=== PATIENT | male | born 1970 | race Caucasian/White ===

== ENCOUNTER 2017-04-04 17:59 | Inpatient (IN) ==
--- NOTE | 2017-04-04 18:18 | Emergency Department Note ---
START Narrative - START START: I examined this patient and my medical decision-making was reviewed with the GAME AGENT/PA/Advanced Practice Nurse/Resident Physician. I agree with the documented findings, disposition and treatment plan as described except to the extent set forth below. ED attending note: Patient seen with emergency medicine resident Dr. Bruce. Please see a copy of his note for details of the H&P, evaluation, management and disposition of this patient. We independently had [id number] contact with the patient Briefly: A 46-year-old male history of "mini stroke" one year prior with outpatient cardiac ultrasound and carotid Dopplers which were "okay" per patient. 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 Which is painless. He also has facial droop on the left. But no dysarthria. Patient has some mild heaviness of his left upper extremity. No focal motor deficits appreciated. No chest pain or shortness of breath. We will call a stroke alert at 1815. Stroke alert protocol is being initiated. Disposition pending. Provided 40 minutes of critical care services for this patient.
[2017-04-04 18:21] LABS: Basophils # 0.1 K/mcL (0.0-0.2); Basophils % 0.6 %; Eosinophils # 0.1 K/mcL (0.0-0.6); Eosinophils % 1.3 %; Hematocrit 48.3 % (37.5-50.1); Hemoglobin 16.2 g/dL (12.9-16.9); Immature Granulocytes % 0.4 % (0-4); Lymphocytes # 2.2 K/mcL (0.6-4.6); Lymphocytes % 22.6 %; Mean Corpuscular HGB Conc 33.5 g/dL (31.6-35.5); Mean Corpuscular Hemoglobin 29.3 pg (28.0-33.3); Mean Corpuscular Volume 87.3 fL (83.0-100.0); Mean Platelet Volume 8.8 fL (9.4-12.4); Monocytes % 9.8 %; Neutrophils # 6.5 K/mcL (1.6-8.9); Platelet Count 280 K/mcL (140-400); Red Blood Count 5.53 M/mcL (4.19-5.50); Red Cell Distribution Width 13.2 % (11.5-14.5); Segmented Neutrophils % 65.3 %
[2017-04-04 18:36] LABS: BUN/Creatinine Ratio 11 (6-26); Blood Urea Nitrogen 10 mg/dL (8-26); Calcium 9.7 mg/dL (8.6-10.8); Carbon Dioxide 25 mEq/L (19-29); Chloride 104 mEq/L (98-109); Glucose 90 mg/dL (70-99); Osmolality,Calculated 287 (280-300); Sodium 139 mEq/L (136-145); eGFR For African Americans > 60 (> 60); eGFR For Non-African Americans > 60 (> 60)
--- NOTE | 2017-04-04 18:54 | Emergency Department Note ---
Disposition Clinical Impression: Stroke Qualifiers: CVA mechanism: unspecified Qualified Code(s): I63.9 - Cerebral infarction, unspecified Disposition: Still a Patient Referrals: Lei Morfin MD [Primary Care Provider] - Forms: ED Satisfaction Letter Neuro HPI - General Chief Complaint: ED Neuro Symptoms/Deficit Stated Complaint: Vision loss left eye, stroke HX Time Seen by Provider: 04/04/17 18:09 Source: patient Limitations: no limitations Nursing Notes Reviewed: Yes Vital Signs Reviewed: Yes - History of Present Illness HPI Narrative: Patient presents today for acute vision loss. 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 Patient then began having loss of vision on the left side is associated with left-sided "heaviness". He states he was able to walk but that it felt like it more effort to engage his left side. Patient then presented to the ER approximately 4 hours later after the symptoms had not resolved. He is a previous history of TIA that was diagnosed approximately a year ago but has not been taking daily aspirin for approximately 8 months. Has a history of hypertension that he is not on medications for and has not done the blood work his family doctor requested in regards to hypercholesterolemia. Discussed interventions including the close time window with TPA. The patient is familiar with TPA is actually refusing due to increased risk of worsening symptoms. He states that he has a daughter and that his symptoms are mild and would not want this intervention. - Related Data Home Medications: Previous Rx's Medication Instructions Recorded Hydrocodone/Acetaminophen [[place] 1 tab PO Q4H PRN #14 tab NS 07/24/15 5-325 Tablet] Naproxen [Naprosyn] 500 mg PO BID #20 tablet 07/24/15 Amoxicillin 500 mg PO BID 10 Days 09/19/16 hydroCHLOROthiazide 12.5 mg PO DAILY 30 Days 12/01/16 [Hydrochlorothiazide] Allergies/Adverse Reactions: Allergies Allergy/AdvReac Type Severity Reaction Status Date / Time morphine Allergy Hives Verified 07/23/15 23:54 prednisone Allergy Hives Verified 07/23/15 23:54 Review of Systems: CONSTITUTIONAL: No weight loss, fever, chills, weakness or fatigue. HEENT: Eyes: No visual changes. Ears, Nose, Throat: No hearing loss, difficulty talking or unable to swallow. SKIN: No rash or itching. CARDIOVASCULAR: No chest pain, chest pressure or chest discomfort. No palpitations or edema. RESPIRATORY: No shortness of breath, cough or sputum. GASTROINTESTINAL: No anorexia, nausea, vomiting or diarrhea. No abdominal pain or blood. GENITOURINARY: No burning on urination or hematuria. NEUROLOGICAL: Confusion, vision loss, facial droop, left-sided heaviness MUSCULOSKELETAL: No muscle pain, back pain, joint pain or stiffness. Past Medical History - Past Medical History Medical history: Reports: CVA, hypertension, TIA Surgical history: Reports: other Psychiatric history: Reports: no psych history - Social History Smoking Status: Current every day smoker Smokeless Tobacco Status: No Alcohol use: Reports: occasionally Drug use: Reports: none Physical Exam General appearance: NAD, conversant Eyes: anicteric sclerae, moist conjunctivae; PERRL HENT: Atraumatic; oropharynx clear with moist mucous membranes and no mucosal ulcerations Neck: Normal inspection; Trachea midline; FROM, supple Lungs: CTA, with normal respiratory effort and no intercostal retractions CV: RRR, no MRGs Abdomen: Soft, non-tender; no rebound or gaurding Extremities: No peripheral edema or extremity lymphadenopathy Skin: Normal temperature; no rash, ulcers or lesions Psych: Appropriate mood and affect Neuro: alert and oriented to person, place and time - General Limitations: no limitations General appearance: alert - Expanded Neurological Exam Patient oriented to: Present: person, place, time Speech: Present: fluid speech Cranial nerves: EOM function (II, III, IV, ): Abnormal Left, facial palsy (VII ): Abnormal Right, Abnormal Left, gag reflex (IX): Normal, spinal accessory function (XI): Normal, tongue deviation (XII): Normal Cerebellar function: finger to nose: Normal, heel to colon: Normal Cerebellar function: normal gait Motor strength - LUE: 5/5 Motor strength - RUE: 5/5 Motor strength - LLE: 5/5 Motor strength - RLE: 5/5 Sensory exam upper extremity: light touch: Normal Sensory exam lower extremity: light touch: Normal Coma Scale Eye Opening: Spontaneous Coma Scale Motor Response: Obeys Commands Coma Scale Verbal Response: Oriented Coma Scale Total: 15 - Psychiatric Psychiatric exam: Present: normal affect, normal mood - Skin Skin exam: Present: warm, dry, intact Course - Reevaluation(s) Reevaluation #1: CTA head and neck ordered. CT was called to expedite the process. Patient will be signed out to the night team Dr. Barnard - Consultations Consultation #1: Discussed with [facility] u[facility]. At this time it is greater than 4-1/2 hours and the patient does not qualify for TPA. The recommend a stat CTA of the head and neck in a call back for any abnormal imaging. If the images do not show any abnormality the patient is a candidate to stay at our hospital for further management. Vital Signs Temperature 98.9 F 04/04/17 18:07 Pulse Rate 100 04/04/17 18:07 Respiratory Rate 16 04/04/17 18:07 Blood Pressure 194/118 04/04/17 18:07 O2 Sat by Pulse Oximetry 97 04/04/17 18:07 Temperature 98.9 F 04/04/17 18:07 Pulse Rate 63 04/04/17 19:47 Respiratory Rate 16 04/04/17 19:47 Blood Pressure 157/95 04/04/17 19:47 O2 Sat by Pulse Oximetry 99 04/04/17 19:47 Oxygen Delivery Oxygen Delivery Room Air Neuro Symptoms/Deficit - Medical Records Medical records reviewed: Yes I reviewed the patient's medical records. - Lab Data Lab results reviewed: Yes I reviewed the patient's lab results. Result diagrams: 04/04/17 18:11 04/04/17 18:11 Lab Results 04/04/17 04/04/17 04/04/17 Range/Units 18:11 18:11 18:11 WBC 9.9 (4.3-11.1) K/mcL RBC 5.53 H (4.19-5.50) M/mcL Hgb 16.2 (12.9-16.9) g/dL Hct 48.3 (37.5-50.1) % MCV 87.3 (83.0-100.0) fL MCH 29.3 (28.0-33.3) pg MCHC 33.5 (31.6-35.5) g/dL RDW 13.2 (11.5-14.5) % Plt Count 280 (140-400) K/mcL MPV 8.8 L (9.4-12.4) fL Immature Gran % 0.4 (0-4) % Seg Neutrophils % 65.3 % Lymphocytes % 22.6 % Monocytes % 9.8 % Eosinophils % 1.3 % Basophils % 0.6 % Neutrophils # 6.5 (1.6-8.9) K/mcL Lymphocytes # 2.2 (0.6-4.6) K/mcL Monocytes # 1.0 (0.0-1.3) K/mcL Eosinophils # 0.1 (0.0-0.6) K/mcL Basophils # 0.1 (0.0-0.2) K/mcL Sodium 139 (136-145) mEq/L Potassium 4.0 (3.5-4.5) mEq/L Chloride 104 (98-109) mEq/L Carbon Dioxide 25 (19-29) mEq/L BUN 10 (8-26) mg/dL Creatinine 0.90 (0.72-1.25) mg/dL Est GFR ( Amer) > 60 (> 60) Est GFR (Non-Af Amer) > 60 (> 60) BUN/Creatinine Ratio 11 (6-26) Glucose 90 (70-99) mg/dL POC Glucose (58-89) Calculated Osmolality 287 (280-300) Calcium 9.7 (8.6-10.8) mg/dL Troponin I 0.01 (0-0.03) ng/mL 04/04/17 Range/Units 18:11 WBC (4.3-11.1) K/mcL RBC (4.19-5.50) M/mcL Hgb (12.9-16.9) g/dL Hct (37.5-50.1) % MCV (83.0-100.0) fL MCH (28.0-33.3) pg MCHC (31.6-35.5) g/dL RDW (11.5-14.5) % Plt Count (140-400) K/mcL MPV (9.4-12.4) fL Immature Gran % (0-4) % Seg Neutrophils % % Lymphocytes % % Monocytes % % Eosinophils % % Basophils % % Neutrophils # (1.6-8.9) K/mcL Lymphocytes # (0.6-4.6) K/mcL Monocytes # (0.0-1.3) K/mcL Eosinophils # (0.0-0.6) K/mcL Basophils # (0.0-0.2) K/mcL Sodium (136-145) mEq/L Potassium (3.5-4.5) mEq/L Chloride (98-109) mEq/L Carbon Dioxide (19-29) mEq/L BUN (8-26) mg/dL Creatinine (0.72-1.25) mg/dL Est GFR ( Amer) (> 60) Est GFR (Non-Af Amer) (> 60) BUN/Creatinine Ratio (6-26) Glucose (70-99) mg/dL POC Glucose 98 H (58-89) Calculated Osmolality (280-300) Calcium (8.6-10.8) mg/dL Troponin I (0-0.03) ng/mL - Radiology Data Radiology results reviewed: Yes I reviewed the patient's radiology results. - EKG Data EKG attestation: Yes I reviewed and interpreted this EKG. EKG results narrative: EKG shows sinus rhythm with ventricular rate of 79. WV interval 167. QRS 89. QTC 36. Patient has no significant ST elevations or depressions. Patient's EKG unchanged from 12/01/16. TPA Checklist - LKW: 3-4.5 hrs Add. Contraindications Patient/family understanding: The patient/family members have been counseled and understood the risk, benefit , and alternatives of treatment.
--- NOTE | 2017-04-04 19:59 | Emergency Department Note ---
Disposition Clinical Impression: Facial droop due to stroke Stroke Qualifiers: CVA mechanism: unspecified Qualified Code(s): I63.9 - Cerebral infarction, unspecified Disposition: Admitted As Inpatient Condition: Good Referrals: Lei Morfin MD [Primary Care Provider] - Forms: ED Satisfaction Letter Time of Disposition: 20:03 Neuro HPI - General Chief Complaint: ED Neuro Symptoms/Deficit Stated Complaint: Vision loss left eye, stroke HX Time Seen by Provider: 04/04/17 18:09 Source: patient Limitations: no limitations Nursing Notes Reviewed: Yes Vital Signs Reviewed: Yes - Related Data Home Medications: Previous Rx's Medication Instructions Recorded Hydrocodone/Acetaminophen [[place] 1 tab PO Q4H PRN #14 tab NS 07/24/15 5-325 Tablet] Naproxen [Naprosyn] 500 mg PO BID #20 tablet 07/24/15 Amoxicillin 500 mg PO BID 10 Days 09/19/16 hydroCHLOROthiazide 12.5 mg PO DAILY 30 Days 12/01/16 [Hydrochlorothiazide] Allergies/Adverse Reactions: Allergies Allergy/AdvReac Type Severity Reaction Status Date / Time morphine Allergy Hives Verified 07/23/15 23:54 prednisone Allergy Hives Verified 07/23/15 23:54 Past Medical History - Past Medical History Attestation: Yes The following information was validated with the patient. Source: patient Medical history: Reports: CVA, hypertension, TIA Surgical history: Reports: other Psychiatric history: Reports: no psych history - Social History Smoking Status: Current every day smoker Smokeless Tobacco Status: No Alcohol use: Reports: occasionally Drug use: Reports: none Physical Exam - General Limitations: no limitations General appearance: alert Course Course Narrative: Patient signed out by the daytime physician Dr. Parish and Dr. Bruce. Detailed review the patient's presentation symptoms medical history intervention were discussed. Patient presented here today with left-sided vision loss and left-sided facial droop. Stroke alert was called that time. Detailed review evaluation was completed with the [facility] stroke team. Due to the patient's presentation symptoms were discussed. Patient was determined not to be a TPA candidate. They recommended CT scans of the head secondary to symptoms and presentation. The imaging order was placed by the daytime physician. I reviewed the case presentation and symptoms with the patient. He has had no change in symptoms at this time. Physical exam is stable. Admission process to be completed once CT imaging is resulted. Disposition to be determined. - Reevaluation(s) Reevaluation #1: cta of the neck and head are neg. pt informed. asa given. pt otherwise has no complaints. pt to be admitted to the hospital for further evaluation of stroke like symptoms. Time: 20:28 Reevaluation #2: Patient I reviewed the presentation with the hospitalist Dr. solano. Vital signs reviewed medical intervention and evaluation CT imaging also discussed. No other recommendations from them at this time. Patient admitted the hospital for further evaluation of strokelike symptoms. Patient's been clinically stable with no signs of acute change or deterioration in his presentation. CT images were reviewed as well and the fact the patient is unable to have MRI secondary to nerve stimulator in his spine. This information was all passed on to the hospitals prior to admission. Patient is otherwise stable resting in the bed. Will continue monitoring in emergency room at admission process is completed. Evaluation given at this time as well to help prevent against contrast-induced nephropathy in anticipation of patient requiring further imaging studies with contrast. Time: 20:39 Vital Signs Temperature 98.9 F 04/04/17 18:07 Pulse Rate 100 04/04/17 18:07 Respiratory Rate 16 04/04/17 18:07 Blood Pressure 194/118 04/04/17 18:07 O2 Sat by Pulse Oximetry 97 04/04/17 18:07 Temperature 98.9 F 04/04/17 18:07 Pulse Rate 63 04/04/17 19:47 Respiratory Rate 16 04/04/17 19:47 Blood Pressure 157/95 04/04/17 19:47 O2 Sat by Pulse Oximetry 99 04/04/17 19:47 Oxygen Delivery Oxygen Delivery Room Air Neuro Symptoms/Deficit - MDM Narrative Medical decision making narrative: Left-sided facial droop, vision changes, strokelike symptoms - Medical Records Medical records reviewed: Yes I reviewed the patient's medical records. - Lab Data Lab results reviewed: Yes I reviewed the patient's lab results. Result diagrams: 04/04/17 18:11 04/04/17 18:11 Lab Results 04/04/17 04/04/17 04/04/17 Range/Units 18:11 18:11 18:11 WBC 9.9 (4.3-11.1) K/mcL RBC 5.53 H (4.19-5.50) M/mcL Hgb 16.2 (12.9-16.9) g/dL Hct 48.3 (37.5-50.1) % MCV 87.3 (83.0-100.0) fL MCH 29.3 (28.0-33.3) pg MCHC 33.5 (31.6-35.5) g/dL RDW 13.2 (11.5-14.5) % Plt Count 280 (140-400) K/mcL MPV 8.8 L (9.4-12.4) fL Immature Gran % 0.4 (0-4) % Seg Neutrophils % 65.3 % Lymphocytes % 22.6 % Monocytes % 9.8 % Eosinophils % 1.3 % Basophils % 0.6 % Neutrophils # 6.5 (1.6-8.9) K/mcL Lymphocytes # 2.2 (0.6-4.6) K/mcL Monocytes # 1.0 (0.0-1.3) K/mcL Eosinophils # 0.1 (0.0-0.6) K/mcL Basophils # 0.1 (0.0-0.2) K/mcL Sodium 139 (136-145) mEq/L Potassium 4.0 (3.5-4.5) mEq/L Chloride 104 (98-109) mEq/L Carbon Dioxide 25 (19-29) mEq/L BUN 10 (8-26) mg/dL Creatinine 0.90 (0.72-1.25) mg/dL Est GFR ( Amer) > 60 (> 60) Est GFR (Non-Af Amer) > 60 (> 60) BUN/Creatinine Ratio 11 (6-26) Glucose 90 (70-99) mg/dL POC Glucose (58-89) Calculated Osmolality 287 (280-300) Calcium 9.7 (8.6-10.8) mg/dL Troponin I 0.01 (0-0.03) ng/mL 04/04/17 Range/Units 18:11 WBC (4.3-11.1) K/mcL RBC (4.19-5.50) M/mcL Hgb (12.9-16.9) g/dL Hct (37.5-50.1) % MCV (83.0-100.0) fL MCH (28.0-33.3) pg MCHC (31.6-35.5) g/dL RDW (11.5-14.5) % Plt Count (140-400) K/mcL MPV (9.4-12.4) fL Immature Gran % (0-4) % Seg Neutrophils % % Lymphocytes % % Monocytes % % Eosinophils % % Basophils % % Neutrophils # (1.6-8.9) K/mcL Lymphocytes # (0.6-4.6) K/mcL Monocytes # (0.0-1.3) K/mcL Eosinophils # (0.0-0.6) K/mcL Basophils # (0.0-0.2) K/mcL Sodium (136-145) mEq/L Potassium (3.5-4.5) mEq/L Chloride (98-109) mEq/L Carbon Dioxide (19-29) mEq/L BUN (8-26) mg/dL Creatinine (0.72-1.25) mg/dL Est GFR ( Amer) (> 60) Est GFR (Non-Af Amer) (> 60) BUN/Creatinine Ratio (6-26) Glucose (70-99) mg/dL POC Glucose 98 H (58-89) Calculated Osmolality (280-300) Calcium (8.6-10.8) mg/dL Troponin I (0-0.03) ng/mL - Radiology Data Radiology results reviewed: Yes I reviewed the patient's radiology results. CT imaging of the head reviewed. No acute intracranial pathology or bleed noted at this time Attestation Statement - Attestation Attestation: I, Karl Vera MD, personally evaluated this patient and discussed their management with the resident physician. I reviewed the resident's note and agree with the documented findings, medical decision making, and plan of care. This patient was signed out at shift change from Dr. Bruce and Dr. Parish. Please refer to their notes for complete details of history and physical examination. Patient presented with stroke symptoms. He was a stroke alert and after neurology consultation tPA was not indicated however patient had refused to take TPA anyway. At shift change he is awaiting a CTA of the head and neck prior to hospital admission. CTA returned and was suboptimal but showed no obvious abnormality. On exam patient is a well-developed well-nourished male in no acute distress. He is alert and oriented 3. There is no cyanosis or diaphoresis. Sounds are clear and equal bilaterally. Heart regular rate and rhythm. Abdomen soft and nontender with normal bowel sounds. The hospitalist, Dr. Solano, with consulted and accepted admission of the patient.
[2017-04-04] MEDS ORDERED: 0.9 % Sodium Chloride 1,000 ML IVC ONE (20:24)
[2017-04-04] MEDS ORDERED: Aspirin 81 MG TAB.CHEW PO STA (20:25)
[2017-04-04] MEDS ORDERED: Acetaminophen 325 MG TABLET PO PRN (21:43)
--- NOTE | 2017-04-04 22:21 | Internal Med History&Physical ---
Date of Encounter: 04/04/17 Time of Encounter: 21:00 Assessment and Plan (1) Stroke Current visit: Yes Status: Acute Negative TPA candidate per telestroke report. CTA negative. Patient not able to have an MRI due to back surgery with metallic implantation. However, given objective and subjective left sided weakness and visual impairment, will consult Neurology for further recommendations. Echocardiogram and Carotid Ultrasounds ordered. Aspirin 325 mg ordered x 1, 81 mg ordered daily. Qualifiers: CVA mechanism: unspecified Qualified Code(s): I63.9 - Cerebral infarction, unspecified (2) Hypertension Current visit: Yes Status: Chronic Noncompliant with Lisinopril. Social work consulted for medication assistance. At this time, allow for permissive HTN in light of stroke - like symptoms. Qualifiers: Hypertension type: essential hypertension Qualified Code(s): I10 - Essential (primary) hypertension (3) Tobacco abuse Current visit: Yes Status: Acute Cessation advised, but patient refused. Agrees to cut down at this time. Internal Medicine - H&P: HPI Chief complaint: left sided weakness, visual loss Admitted From: Home Plans for Post Hospital Care: Home History of present illness: Mr. Lopez is a 46 year old male with PMH noncompliance, HTN, TIA, back trauma resulting in R-sided weakness, tobacco abuse who presents with acute left sided weakness (upper and lower extremities) and left-sided facial drooping with left- eye visual loss, memory impairment. Symptoms started around 2 p.m. this afternoon while patient was at work. 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 His left eye lost vision and was accompanied by left-sided facial drooping. His left arm and leg felt very weak and heavy. He admits that his visual loss has been an ongoing intermittent issue. However, the other issues that he describes are completely new. Denies any difficulty in swallowing or speech. He denies any preceding chest pain or shortness or breath or palpitations. When he initially presented to the ED A telemetry stroke alert was called and patient was determined to not be a TPA candidate; he underwent a CT angiogram of the head and this was unremarkable. He states that his vision has returned in the left eye, but the remainder of the symptoms persist. Of note, he appeared to have been worked up in 2015 for possible stroke and had a normal echocardiogram and carotid Dopplers. He is very pleasant, but claims he will not stop smoking but is agreeable to cutting back on use. He also has not taken any of his meds ( Aspirin, Lisinopril, etc.) in 5 months. Past Med Surg Social Fam HX - Past Medical History Source: patient Medical history: CVA, hypertension, TIA, other (steel injury resulting in back trauma; patient has persistent RUE and RLE weakness. ) Psychiatric history: no psych history - Past Surgical History Surgical History: other - Social History Smoking Status: Current every day smoker Smokeless Tobacco Status: No Alcohol use: occasionally Drug use: none Internal Medicine - H&P: Meds Hydrocodone/Acetaminophen [[place] 5-325 Tablet] 1 tab PO Q4H PRN #14 tab NS 07/24 [Rx] Naproxen [Naprosyn] 500 mg PO BID #20 tablet 07/24/15 [Rx] Amoxicillin 500 mg PO BID 10 Days 09/19/16 [Rx] hydroCHLOROthiazide [Hydrochlorothiazide] 12.5 mg PO DAILY 30 Days 12/01/16 [Rx] Allergies morphine Allergy (Verified 07/23/15 23:54) Hives prednisone Allergy (Verified 07/23/15 23:54) Hives All Systems PM: A 10-system review of systems was performed and is negative for pertinent findings except as documented above in the HPI. - Constitutional Constitutional: no anorexia, no fever(s) - EENT Eyes: as per HPI Ears: no decreased hearing Additional comments: No difficulty in swallowing. - Cardiovascular Cardiovascular ROS IM: no chest pain, no dyspnea - Respiratory Respiratory: no cough, no dyspnea - Genitourinary Genitourinary ROS male: no dysuria - Musculoskeletal Musculoskeletal ROS IM: as per HPI, muscle weakness, tingling - Neurological Neurological ROS: confusion, numbness, weakness, other visual disturbances, no abnormal speech - Endocrine Additional comments: reports history of symptomatic hypoglycemia - Constitutional Vitals: Temp Pulse Resp BP Pulse Ox 98.3 F 60 16 160/88 98 04/04/17 21:53 04/04/17 21:53 04/04/17 21:53 04/04/17 21:53 04/04/17 21:53 General appearance: Present: A&O X 3, pleasant, no acute distress - Head Head exam: Present: atraumatic - Eye Pupils: Present: PERRL - ENT ENT exam: Present: mucous membranes moist - Respiratory Respiratory exam: Present: CTAB - Cardiovascular Cardiovascular exam: Present: RRR, +S1, +S2. Absent: diastolic murmur, systolic murmur - GI/Abdominal GI/Abdominal exam: Present: soft. Absent: tenderness - Neurological Exam Neurological exam: Present: alert Additional comments: left facial drooping with asymmetric smile. No glossal deviation. Left eye ptosis. Forehead wrinkles bilaterally. Left arm and leg weakness with strenght 4 /5. Notable weakness affected the intrinsic hand muscles. No speech impairment. - Psychiatric Psychiatric exam: Present: normal affect, normal mood - Skin Additional comments: tattoos Internal Med - H&P Results - Labs CBC & Chem 7: 04/04/17 18:11 04/04/17 18:11
[2017-04-05 04:48] LABS: Chol/HDL Ratio 5.8 (0-4.9)
[2017-04-05 04:49] LABS: Hemoglobin A1C 5.2 %
[2017-04-05] MEDS ORDERED: Aspirin 81 MG TAB.CHEW PO SCH (09:00)
--- NOTE | 2017-04-05 11:23 | Internal Med Progress Note ---
<Severino Coats - Last Filed: 04/05/17 11:17> Date of Encounter: 04/05/17 Time of Encounter: 08:15 - Assessment and plan (1) TIA (transient ischemic attack) Current Visit: Yes Status: Acute Assessment and plan: Patient presented with signs and symptoms concerning for CVA/TIA (left-sided weakness and visual impairment). Tele-stroke was consulted, at the time of presentation he is outside the window for TPA. CTA of the head and neck was limited, but negative. Patient found to have TIA in September 2015 with negative workup at that time. Bilateral carotid Dopplers pending Echocardiogram pending We will consult neurology due to concerns of recurrent TIA Continue aspirin daily Blood pressure control with 5 mg was supple daily Hyperlipidemia controlled with atorvastatin 80 mg daily Qualifiers: Transient cerebral ischemia type: amaurosis fugax Qualified Code(s): G45.3 - Amaurosis fugax (2) Hypertension Current Visit: Yes Status: Chronic Assessment and plan: Patient on hydrochlorothiazide as outpatient. Presented to [facility] with elevated blood pressure at 194/118. Blood pressure shows good control now with last blood pressure 108/67 on lisinopril 5 mg. Continue 5 mg lisinopril daily Qualifiers: Hypertension type: essential hypertension Qualified Code(s): I10 - Essential (primary) hypertension (3) Lower back injury Current Visit: Yes Status: Acute Assessment and plan: Patient has history of lower back injury with history of lower back surgery and hardware in place. Due to the nature of the hardware in place cannot obtain MRI of brain. Patient also has residual right lower extremity weakness due to his prior injury. He has difficulty in steady ambulation, Romberg, right lower extremity weakness, and atrophy of the right lower extremity. Qualifiers: Encounter type: initial encounter Qualified Code(s): S39.92XA - Unspecified injury of lower back, initial encounter (4) Tobacco abuse Current Visit: Yes Status: Acute (5) DVT prophylaxis Current Visit: Yes Status: Acute Assessment and plan: EPCDs - Subjective Interval history: Patient reports that he is doing well today with return of his strength and vision. He denies any chest pain, denies history of diabetes, denies shortness of breath, denies feeling ill recently. He reports having residual right lower extremity weakness following his back injury previously that this interferes with both the Romberg and his gait normally. - Constitutional Vitals: Temp Pulse Resp BP Pulse Ox 97.8 F 53 16 108/67 99 04/05/17 07:45 04/05/17 07:45 04/05/17 07:45 04/05/17 07:45 04/05/17 07:58 General appearance: Present: A&O X 3, pleasant, no acute distress Exam: General: Cooperative, pleasant, no acute distress, alert and oriented 3, answers questions appropriately HEENT: Normocephalic, atraumatic, neck supple, trachea midline, Conjunctiva pink , sclera anicteric, PERRLA, EOMI, dentition poor, oral mucosa moist, no orophargeal erythema or exudates Respiratory: No accessory muscle usage, clear to auscultation bilaterally, no wheezes/rhonchi/rales appreciated Cardiovascular: Regular rate and rhythm, S1 and S2 present, no murmurs/rubs/ gallops/clicks appreciated, no carotid bruits auscultated GI/abdominal: Nondistended, nontender, soft, normal bowel sounds, no peritoneal signs Extremities: No calf tenderness, noncyanotic, no pedal edema appreciated, warm, lower extremity pulses palpable and symmetrical, right lower extremity slightly smaller diameter due to atrophy and chronic weakness Neurological: Alert and oriented 3, no facial droop, cranial nerves II through XII grossly intact without deficits, gross sensation to light touch intact in upper and lower extremities bilaterally, patient has 4/5 strength in right lower extremity, 5/5 strength in bilateral upper extremities and left lower extremity, rapid alternating movements smooth, fast, with good miranda, finger to nose test accurate without tremors, wide stance halting gait (due to right lower secondary to weakness), increased swelling observed with Romberg (due to right-lower shoulder weakness) Skin: Dry, intact, normal color Internal Medicine: Result - Labs CBC & Chem 7: 04/04/17 18:11 04/04/17 18:11 Consult Discharge Plan - Plan [facility] - <Adrian Finney - Last Filed: 04/05/17 13:38> Date of Encounter: 04/05/17 - Constitutional Vitals: Temp Pulse Resp BP Pulse Ox 98 F 57 16 143/78 98 04/05/17 11:44 04/05/17 11:44 04/05/17 11:44 04/05/17 11:44 04/05/17 11:44 Internal Medicine: Result - Labs CBC & Chem 7: 04/04/17 18:11 04/04/17 18:11 - Attending Attestation I examined this patient and my medical decision-making was reviewed with the GASOLINE PUMP MECH[employer]IC/PA/Advanced Practice Nurse/Resident Physician. I agree with the documented findings, disposition and treatment plan as described except to the extent set forth below. Agree with Dr. Coats, neurology consult.
[2017-04-05 11:46] VITALS: BP 143/78
--- NOTE | 2017-04-05 14:08 | Neurology - Consult Note ---
Date of Encounter: 04/05/17 Time of Encounter: 14:06 Assessment and Plan (1) Stroke Current Visit: Yes Status: Acute 46-year old man with prior history of stroke, hypertension, hypercholesterolemia , with an acute-onset episode of visual disturbance and left facial droop, highly suspicious for a new stroke in the right hemisphere without significant motor or sensory deficits - suggestive of possible involvement of the right insula. Cannot get MRI brain. CTA with no occlusions. Suspect small vessel issue, likely cholesterol embolism/plaque thrombus. ASA HTN control Lipid control Smoking cessation Follow-up with Neurology (Dr Vance or Dr Barbosa) in 1-2 weeks as outpatient. Qualifiers: Qualified Code(s): I63.411 - Cerebral infarction due to embolism of right middle cerebral artery History of Present Illness Chief complaint: stroke? HPI: Mr. Lopez is a 46 year old male with prior history of stroke, hypertension, hypercholesterolemia, with an acute episode of visual disturbancethat happened while he was at work. He apparently did have a similar episode in the past and it resolved itself. Both times, apparently he had a slight facial droop with that as well. He has a prior history of lumbar surgery, and has some residual deficits on the right leg. No chest pain/palpitations/shortness of breath. He states that his eye symptoms have resolved but his face droop is still there. He has family history of cholesterol issues, and he is a smoker. He has social issues at home, that even when he attempted to cut down his cigarettes (or use chantix), he had bad reactions and could not stop. He never tried patch. Yesterday when he came to the ER, a telestroke consult was made and although he was eligible for tPA, he did not want to do the tPA given the possibility of making things worse. He has now been placed on ASA, lisinopril and statins. He could not get MRI because of pain stimulator in his spinal cord. He had CTH/ CTA(H&N) which was all normal. Past Med Surg Social Fam HX - Past Medical History Medical history: CVA, hypertension, TIA, other Psychiatric history: no psych history - Past Surgical History Surgical History: appendectomy, cholecystectomy, other - Social History Smoking Status: Current every day smoker Packs per day: 1 Smokeless Tobacco Status: No Alcohol use: occasionally Drug use: none Medications and Allergies No Known Home Drugs 04/05/17 [History] Allergies morphine Allergy (Verified 07/23/15 23:54) Hives prednisone Allergy (Verified 07/23/15 23:54) Hives All Systems: A 10-system review of systems was performed and is negative for pertinent findings except as documented above in the HPI. - Constitutional Constitutional ROS IM: as per HPI - Eyes Eyes: left: loss of peripheral vision (left visual field loss), loss of vision ( left visual field loss) - Nose, Mouth, Throat Nose, mouth and throat: as per HPI - Cardiovascular Cardiovascular ROS IM: as per HPI - Respiratory Respiratory IM: as per HPI - Gastrointestinal Gastrointestinal: as per HPI - Genitourinary Genitourinary ROS: as per HPI - Musculoskeletal Musculoskeletal ROS IM: as per HPI - Neurological Neurological ROS: as per HPI, loss of vision - Psychiatric Psychiatric general PM: as per HPI - Endocrine Endocrine IM: as per HPI - Hematologic/Lymphatic Hematologic/Lymphatic pediatric: as per HPI - Allergic/Immunologic Allergic/Immunologic ROS PM: as per HPI Physical Examination - Vital Signs Vital Signs: Initial Vital Signs Temp Pulse Resp BP Pulse Ox 98.9 F 100 16 194/118 97 04/04/17 18:07 04/04/17 18:07 04/04/17 18:07 04/04/17 18:07 04/04/17 18:07 Vital Signs - 24 hr 04/04/17 18:07 04/04/17 18:25 04/04/17 18:39 Temperature 98.9 F Pulse Rate 100 80 74 Respiratory Rate 16 16 18 Blood Pressure 194/118 167/92 150/86 O2 Sat by Pulse Oximetry 97 98 97 04/04/17 19:47 04/04/17 21:04 04/04/17 21:53 Temperature 98.3 F Pulse Rate 63 60 Respiratory Rate 16 16 16 Blood Pressure 157/95 144/99 160/88 O2 Sat by Pulse Oximetry 99 98 04/04/17 23:10 04/05/17 00:50 04/05/17 03:00 Temperature 98.3 F 97.8 F 97.8 F Pulse Rate 60 63 60 Respiratory Rate 16 16 16 Blood Pressure 160/88 124/65 126/70 O2 Sat by Pulse Oximetry 96 96 04/05/17 05:03 04/05/17 06:02 04/05/17 07:45 Temperature 97.7 F 97.8 F Pulse Rate 62 62 53 Respiratory Rate 16 16 16 Blood Pressure 128/72 128/72 108/67 O2 Sat by Pulse Oximetry 97 99 04/05/17 07:58 04/05/17 11:44 Temperature 98 F Pulse Rate 57 Respiratory Rate 16 Blood Pressure 143/78 O2 Sat by Pulse Oximetry 99 98 - Constitutional General appearance: comfortable - Neurologic Sensorimotor examination: other (left facial droop) Detailed motor examination: grossly full strength in all extremities (except in right lower extremity, limited by pain) Motor examination - right side: 4/5: tibialis Anterior (secondary to spine surgery), quadriceps, toe extension (EHL), plantarflexion, 5/5: deltoids, biceps , triceps, wrist flexion, wrist extension, coding file clerk, hip flexors Motor examination - left side: 5/5: deltoids, biceps, triceps, wrist flexion, wrist extension, hip flexors, coding file clerk, quadriceps, tibialis Anterior, toe extension (EHL), plantarflexion Detailed sensory examination: intact Reflex and gait examination: intact Reflexes: Biceps: 2+, Triceps: 2+, Brachioradialis: 2+, Achilles: 2+ Mental Status Examination: awake, alert, oriented to person, oriented to place, oriented to time, follows commands appropriately, answers questions appropriately, no agnosia, no aphasia, no aproxia Cranial nerve examination: PERRL, EOMI, visual goldman intact, corneal reflexes brisk symmetrically, sensory to face intact, mastication intact, no facial asymmetry is present (left facial droop), no dysarthria, hearing is intact symmetrically, soft palate elevates bilaterally upon phonation, gag reflex intact, flexes SCM and trapezius muscles symmetrically with full power, tongue protrudes midline, no atrophy or facial fasiculations present Cranial Nerve Exam: facial droop: Left (left facial droop) Cerebellar examination: no dysmetria, performs finger to nose and heel to colon symmetrically without ataxia, no gait ataxia, no truncal ataxia, no difficulty with rapid alternating movements Results - Laboratory Findings CBC and BMP: 04/04/17 18:11 04/04/17 18:11 Abnormal lab findings: Abnormal lab results RBC 5.53 M/mcL (4.19-5.50) H 04/04/17 18:11 MPV 8.8 fL (9.4-12.4) L 04/04/17 18:11 POC Glucose 98 (58-89) H 04/04/17 18:11 Triglycerides 172 mg/dL (< 150) H 04/05/17 04:06 VLDL Cholesterol, Calc 34 mg/dL (< 31) H 04/05/17 04:06 HDL Cholesterol 27 mg/dL (40-59) L 04/05/17 04:06 Cholesterol/HDL Ratio 5.8 (0-4.9) H 04/05/17 04:06 - Diagnostic Findings Additional findings: Head CT 04/04/17 18:14 IMPRESSION: No acute intracranial abnormality. No change from September 2015 exam. Findings were discussed with ER physician DR. Bruce over the phone at 6:40 p.m. on April 04, 2017. D/ / Hubert Davis MD / Hubert Davis MD Interpreting Provider: Hubert Davis MD Head CTA 04/04/17 18:53 IMPRESSION: Suboptimal exam. CTA of the head particularly limited. No obvious flow limiting stenosis or branch occlusion identified. RECOMMENDATIONS: Repeat exam or obtain MRI/MRA for further evaluation if clinically warranted. D/ / Jamar Pedro MD / Jamar Pedro MD Interpreting Provider: Jamar Pedro MD Neck CTA 04/04/17 18:53 IMPRESSION: Suboptimal exam. CTA of the head particularly limited. No obvious flow limiting stenosis or branch occlusion identified. RECOMMENDATIONS: Repeat exam or obtain MRI/MRA for further evaluation if clinically warranted. D/ / Jamar Pedro MD / Jamar Pedro MD Interpreting Provider: Jamar Pedro MD Consult Discharge Plan - Plan Referrals: antony,Lei Govea MD [Primary Care Provider] -
--- NOTE | 2017-04-05 14:36 | Discharge Summary ---
<Severino Coats - Last Filed: 04/05/17 14:56> Date of Encounter: 04/05/17 Time of Encounter: 13:45 - Discharge Diagnosis (1) Stroke Priority: Primary Status: Acute Qualifiers: CVA mechanism: embolism Precerebral and cerebral artery: middle cerebral artery Laterality of affected vessel: right Qualified Code(s): I63.411 - Cerebral infarction due to embolism of right middle cerebral artery (2) Hypertension Priority: Primary Status: Chronic Qualifiers: Hypertension type: essential hypertension Qualified Code(s): I10 - Essential (primary) hypertension (3) Lower back injury Priority: Secondary Status: Chronic Qualifiers: Encounter type: initial encounter Qualified Code(s): S39.92XA - Unspecified injury of lower back, initial encounter (4) Tobacco abuse Priority: Primary Status: Acute (5) DVT prophylaxis Priority: Secondary Status: Acute - Discharge Medications Prescriptions: Aspirin 81 mg PO DAILY 30 Days Atorvastatin [Lipitor] 80 mg PO HS 30 Days Lisinopril [Zestril] 5 mg PO DAILY 30 Days Home Medications: Aspirin 81 mg PO DAILY 30 Days 04/05/17 [Rx] Atorvastatin [Lipitor] 80 mg PO HS 30 Days 04/05/17 [Rx] Lisinopril [Zestril] 5 mg PO DAILY 30 Days 04/05/17 [Rx] Allergies/Adverse Reactions: Allergies morphine Allergy (Verified 07/23/15 23:54) Hives prednisone Allergy (Verified 07/23/15 23:54) Hives Date of admission: 04/05/17 07:38 Primary care physician: Lei Morfin MD Discharging clinician: Severino Coats Anticipated date of discharge: 04/05/17 - Patient Status Disposition: Home, Self-Care Condition: Good Functional capacity at discharge: independent ambulation Overall status at discharge: patient is progressing back to baseline - Discharge Instructions Instructions: Transient Ischemic Attack (DC), Ischemic Stroke (DC) Follow Up With: Lei Morfin MD [Primary Care Provider] - (Patient encouraged to follow up with PCP in 1 to 2 weeks for hospital follow up.) Daniele Barbosa DO [Partnered Physician] - (Online patient request made. If office does not call on thursday, patient should call their office and schedule a follow up appt in 1 to 3 weeks for a hospital follow up for possible CVA/TIA like symptoms.) Additional Instructions: Will work on risk factor reduction. Please stop smoking. Take all medications as prescribed: Aspirin 81 mg daily Atorvastatin 80 mg at night Lisinopril 5 mg daily Return to ER if worsening symptoms or development of new symptoms - Diet and Activity Activity: increase activity as tolerated Diet: low salt diet Interval History: Patient reports that he is doing well, with improvement in his vision and his strength on his left side. He has no complaints currently. Hospital course: Mr. Lopez is a 46 year old male with prior medical history of hypertension, hyperlipidemia, low back injury (with hardware in place), and history of smoking who presented to [facility] yesterday after having had lost his vision and having developed left sided weakness earlier that day. Teleneurology was consulted and he was found to be outside of the TPA window. At presentation he was having highly elevated blood pressure. Over the course of the evening, most of his symptoms improved (though he continued to have some left facial drooping) . A CTA of his head and neck did not reveal any obvious findings. Neurology was consulted and it was suspected that he was suffering from small vessel ischemia , due to his chronic risk factors. A MRI could not be performed due to the hardware in his back. At this time he is safe/stable for discharge with close follow up with his PCP and neurologist. Also to work on risk factor reduction: smoking cessation, continue atorvastatin, continue lisinopril, and continue daily aspirin. - Time Spent with Patient Total time spent providing and/or coordinating discharge services: - Constitutional Vitals: Temp Pulse Resp BP Pulse Ox 98 F 57 16 143/78 98 04/05/17 11:44 04/05/17 11:44 04/05/17 11:44 04/05/17 11:44 04/05/17 11:44 General appearance: Present: A&O X 3, pleasant, no acute distress Exam: General: Cooperative, pleasant, no acute distress, alert and oriented 3, answers questions appropriately HEENT: Normocephalic, atraumatic, neck supple, trachea midline, Conjunctiva pink , sclera anicteric, PERRLA, EOMI, dentition poor, oral mucosa moist, no orophargeal erythema or exudates Respiratory: No accessory muscle usage, clear to auscultation bilaterally, no wheezes/rhonchi/rales appreciated Cardiovascular: Regular rate and rhythm, S1 and S2 present, no murmurs/rubs/ gallops/clicks appreciated, no carotid bruits auscultated GI/abdominal: Nondistended, nontender, soft, normal bowel sounds, no peritoneal signs Extremities: No calf tenderness, noncyanotic, no pedal edema appreciated, warm, lower extremity pulses palpable and symmetrical, right lower extremity slightly smaller diameter due to atrophy and chronic weakness Neurological: Alert and oriented 3, mild left sided facial droop, cranial nerves II through XII grossly intact without deficits, gross sensation to light touch intact in upper and lower extremities bilaterally, patient has 4/5 strength in right lower extremity, 5/5 strength in bilateral upper extremities and left lower extremity, rapid alternating movements smooth, fast, with good miranda, finger to nose test accurate without tremors, wide stance halting gait (due to right lower secondary to weakness), increased swelling observed with Romberg (due to right-lower shoulder weakness) Skin: Dry, intact, normal color <Adrian Finney - Last Filed: 04/06/17 07:43> Date of Encounter: 04/06/17 Date of admission: 04/05/17 07:38 Primary care physician: Lei Morfin MD Hospital course: Mr. Lopez is a 46 year old male - Time Spent with Patient Total time spent providing and/or coordinating discharge services: - Constitutional Vitals: Temp Pulse Resp BP Pulse Ox 98 F 57 16 143/78 98 04/05/17 11:44 04/05/17 11:44 04/05/17 11:44 04/05/17 11:44 04/05/17 11:44 - Attending Attestation I examined this patient and my medical decision-making was reviewed with the GUARD RANGE/PA/Advanced Practice Nurse/Resident Physician. I agree with the documented findings, disposition and treatment plan as described except to the extent set forth below. Patient stable for d/c home. Neurology input noted, follow up as outpatient.
--- NOTE | 2017-04-06 09:51 | Electrocardiograph Report ---
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
== END 2017-04-05 15:48 | disposition home or self-care (01) | DRG 45 ==
LOC: EMEROO 17:59 → 2NENU 17:59 → SUATTDRO 20:46 → 2NENU 21:30
PROVIDERS: ADMIT Family Medicine; ATTEND Internal Medicine

== ENCOUNTER 2018-05-02 20:06 | Observation (INO) ==
--- NOTE | 2018-05-02 20:14 | Emergency Department Note ---
Disposition Clinical Impression: TIA (transient ischemic attack) Disposition: Admitted As Inpatient Referrals: Lei Morfin MD [Primary Care Provider] - Forms: ED Satisfaction Letter Time of Disposition: 22:19 Neuro HPI - General Chief Complaint: ED Neuro Symptoms/Deficit Stated Complaint: visual loss on left side, neuro symptoms Time Seen by Provider: 05/02/18 20:14 Source: patient Mode of arrival: ambulatory Limitations: no limitations Nursing Notes Reviewed: Yes Vital Signs Reviewed: Yes - History of Present Illness HPI Narrative: Patient is a 47-year-old male with past medical history of previous CVA, previous TIA, hypertension. He presents today due to right-sided facial paresthesias, right temporal vision loss. He states that these symptoms started about 30-45 minutes ago. His visual loss on the right has now resolved and he has some mild blurring of vision out of the right eye. He also states that his peers lesions have improved on the right side of the face. Denies any other numbness, tingling, weakness anywhere else. He does have chronic weakness of the right lower extremity that he states is unchanged. He is unsure of being on any blood thinners. Denies any other chest pain, shortness breath, nausea, vomiting, fevers, diarrhea, abdominal pain. - Related Data Home Medications: Previous Rx's Medication Instructions Recorded Aspirin 81 mg PO DAILY 30 Days tab.chew 04/05/17 Atorvastatin [Lipitor] 80 mg PO HS 30 Days tablet 04/05/17 Lisinopril [Zestril] 5 mg PO DAILY 30 Days tablet 04/05/17 Cyclobenzaprine [Flexeril] 10 mg PO HS PRN #10 tablet 05/04/17 Naproxen [Naprosyn] 500 mg PO BID PRN #20 tablet 05/04/17 Allergies/Adverse Reactions: Allergies Allergy/AdvReac Type Severity Reaction Status Date / Time morphine Allergy Hives Verified 07/23/15 23:54 prednisone Allergy Hives Verified 07/23/15 23:54 All systems ED: reviewed and negative except as stated. Constitutional: Denies: fever Eyes: Reports: vision change Cardiovascular: Denies: chest pain Respiratory: Denies: cough, dyspnea, wheezes Gastrointestinal: Denies: abdominal pain, nausea, vomiting, diarrhea Musculoskeletal: Denies: back pain, neck pain Neurological: Reports: paresthesias. Denies: headache, weakness, numbness Past Medical History - Past Medical History Attestation: Yes The following information was validated with the patient. Source: patient Medical history: Reports: CVA, hypertension Surgical history: Reports: appendectomy, cholecystectomy, other Psychiatric history: Reports: no psych history - Social History Smoking Status: Current every day smoker Smokeless Tobacco Status: No Alcohol use: Reports: occasionally Drug use: Reports: none Physical Exam - General Limitations: no limitations General appearance: alert, in no apparent distress - Head Head exam: atraumatic, normocephalic, normal inspection - Eye Eye exam: Present: PERRL, EOMI, other (Mild edema of the right eyelid) - ENT ENT exam: normal exam, normal oropharynx, mucous membranes moist - Neck Neck exam: Present: normal inspection, full ROM, trachea midline - Chest Chest inspection: Present: normal inspection, symmetric chest wall rise - Respiratory Respiratory exam: Present: normal lung sounds bilaterally - Cardiovascular Cardiovascular exam: Present: regular rate, normal rhythm, normal heart sounds - Abdominal Exam Abdominal exam: Present: soft, Non-Tender. Absent: tenderness, distention, guarding, rebound, rigidity - Extremities Exam Extremities exam: Present: normal inspection, full ROM, other (Chronic weakness of the right lower extremity with hip flexion and extension). Absent: tenderness, pedal edema - Neurological Exam Neurological exam: Present: alert, oriented X3, CN II-XII intact. Absent: motor sensory deficit - Expanded Neurological Exam Patient oriented to: Present: person, place, time Speech: Present: fluid speech Cranial nerves: EOM function (II, III, IV, ): Normal, facial sensation (V): Normal, facial palsy (VII): Normal, spinal accessory function (XI): Normal Motor strength - LUE: 5/5 Motor strength - RUE: 5/5 Motor strength - LLE: 5/5 Motor strength - RLE: 4/5 (Chronic for the patient) Sensory exam upper extremity: light touch: Normal Sensory exam lower extremity: light touch: Normal Coma Scale Eye Opening: Spontaneous Coma Scale Motor Response: Obeys Commands Coma Scale Verbal Response: Oriented Coma Scale Total: 15 - Psychiatric Psychiatric exam: Present: normal affect, normal mood - Skin Skin exam: Present: warm, dry, intact, normal color Course Course Narrative: Vitals within normal limits. Physical exam shows NIH of 0. Patient does have some mild edema of the right upper eyelid. He does have some chronic right lower showed a weakness that he states is baseline, otherwise no other focal neuro deficits. EKG obtained and shows normal sinus rhythm with no acute ST changes. Basic blood work shows no major lateral abnormalities, troponin negative. Head CT and chest x-ray ordered and pending. Patient will be given aspirin if head CT is negative for bleed. Patient will need to be admitted regardless for further CVA workup. Due to the nature of the visual loss and right sided facial paresthesias resolved upon presentation, stroke alert was not called. Again, NIH was 0. 22:18 Major lab [address] Head CT negative. Chest x-ray pending that appears to be negative at this time. Patient was accepted for admission by Dr. De Leon for further CVA workup. Head CT 05/02/18 20:21 IMPRESSION: No acute intracranial abnormality. D/ / Damien Clemens MD / Damien Clemens MD Interpreting Provider: Damien Clemens MD Vital Signs Temperature 97.7 F 05/02/18 20:08 Pulse Rate 78 05/02/18 20:08 Respiratory Rate 16 05/02/18 20:08 Blood Pressure 150/85 05/02/18 20:08 O2 Sat by Pulse Oximetry 98 05/02/18 20:08 Temperature 97.7 F 05/02/18 20:08 Pulse Rate 64 05/02/18 22:16 Respiratory Rate 16 05/02/18 22:16 Blood Pressure 134/77 05/02/18 22:16 O2 Sat by Pulse Oximetry 98 05/02/18 22:16 Oxygen Delivery Oxygen Delivery Room Air Neuro Symptoms/Deficit - MDM Narrative Medical decision making narrative: Vitals within normal limits. Physical exam shows NIH of 0. Patient does have some mild edema of the right upper eyelid. He does have some chronic right lower showed a weakness that he states is baseline, otherwise no other focal neuro deficits. EKG obtained and shows normal sinus rhythm with no acute ST changes. Basic blood work shows no major lateral abnormalities, troponin negative. Head CT and chest x-ray ordered and pending. Patient will be given aspirin if head CT is negative for bleed. Patient will need to be admitted regardless for further CVA workup. Due to the nature of the visual loss and right sided facial paresthesias resolved upon presentation, stroke alert was not called. Again, NIH was 0. 22:18 Major lab abnormality. Head CT negative. Chest x-ray pending that appears to be negative at this time. Patient was accepted for admission by Dr. De Leon for further CVA workup. - Medical Records Medical records reviewed: Yes I reviewed the patient's medical records. - Lab Data Lab results reviewed: Yes I reviewed the patient's lab results. Result diagrams: 05/02/18 20:20 05/02/18 20:20 Lab Results 05/02/18 05/02/18 05/02/18 Range/Units 20:16 20:20 20:20 WBC 9.1 (4.3-11.1) K/mcL RBC 5.40 (4.19-5.50) M/mcL Hgb 16.2 (12.9-16.9) g/dL Hct 47.2 (37.5-50.1) % MCV 87.4 (83.0-100.0) fL MCH 30.0 (28.0-33.3) pg MCHC 34.3 (31.6-35.5) g/dL RDW 13.5 (11.5-14.5) % Plt Count 269 (140-400) K/mcL MPV 9.0 L (9.4-12.4) fL Immature Gran % 0.2 (0-4) % Seg Neutrophils % 59.8 % Lymphocytes % 25.7 % Monocytes % 11.5 % Eosinophils % 2.1 % Basophils % 0.7 % Neutrophils # 5.5 (1.6-8.9) K/mcL Lymphocytes # 2.3 (0.6-4.6) K/mcL Monocytes # 1.1 (0.0-1.3) K/mcL Eosinophils # 0.2 (0.0-0.6) K/mcL Basophils # 0.1 (0.0-0.2) K/mcL PT 12.7 H (9.4-12.1) Seconds INR 1.1 APTT 33.7 (26.0-36.0) Seconds Sodium (136-145) mEq/L Potassium (3.5-5.1) mEq/L Chloride (98-107) mEq/L Carbon Dioxide (23-29) mEq/L BUN (6-20) mg/dL Creatinine (0.70-1.30) mg/dL Est GFR ( Amer) (> 60) Est GFR (Non-Af Amer) (> 60) BUN/Creatinine Ratio (6-26) Glucose (70-105) mg/dL POC Glucose 105 H (70-99) mg/dL Calculated Osmolality (280-300) Calcium (8.6-10.3) mg/dL Troponin I (< 0.04) ng/mL 05/02/18 Range/Units 20:20 WBC (4.3-11.1) K/mcL RBC (4.19-5.50) M/mcL Hgb (12.9-16.9) g/dL Hct (37.5-50.1) % MCV (83.0-100.0) fL MCH (28.0-33.3) pg MCHC (31.6-35.5) g/dL RDW (11.5-14.5) % Plt Count (140-400) K/mcL MPV (9.4-12.4) fL Immature Gran % (0-4) % Seg Neutrophils % % Lymphocytes % % Monocytes % % Eosinophils % % Basophils % % Neutrophils # (1.6-8.9) K/mcL Lymphocytes # (0.6-4.6) K/mcL Monocytes # (0.0-1.3) K/mcL Eosinophils # (0.0-0.6) K/mcL Basophils # (0.0-0.2) K/mcL PT (9.4-12.1) Seconds INR APTT (26.0-36.0) Seconds Sodium 137 (136-145) mEq/L Potassium 3.6 (3.5-5.1) mEq/L Chloride 108 H (98-107) mEq/L Carbon Dioxide 25 (23-29) mEq/L BUN 7 (6-20) mg/dL Creatinine 0.90 (0.70-1.30) mg/dL Est GFR ( Amer) > 60 (> 60) Est GFR (Non-Af Amer) > 60 (> 60) BUN/Creatinine Ratio 8 (6-26) Glucose 103 (70-105) mg/dL POC Glucose (70-99) mg/dL Calculated Osmolality 282 (280-300) Calcium 8.7 (8.6-10.3) mg/dL Troponin I < 0.03 (< 0.04) ng/mL - Radiology Data Radiology results reviewed: Yes I reviewed the patient's radiology results. - EKG Data EKG attestation: Yes I reviewed and interpreted this EKG. EKG results narrative: 05/02/2018 at 20:22. Normal sinus rhythm. Rate 70. CO 180. QRS 84. QTC 396. No acute ST elevation or depression. NIH Stroke Scale - Level of Consciousness LOC: Alert - LOC Questions LOC Questions: Answers both correctly - LOC Commands LOC Commands: Performs both correctly - Best Gaze Best Gaze: Normal - Visual Visual: No visual loss - Facial Palsy Facial Palsy: Normal - Motor Arms Motor Arm-Left: No drift for 10 seconds Motor Arm-Right: No drift for 10 seconds - Motor Legs Motor Leg-Left: No drift for 5 seconds Motor Leg-Right: No drift for 5 seconds - Limb Ataxia Limb Ataxia: Absent of affected limb too weak to perform exam - Sensory Sensory: Normal - Best Language Best Language: No aphasia - Dysarthria Dysarthria: Normal - Extinction and Inattention Extinction and Inattention: Normal - NIHSS Total Score NIHSS Total Score: 0 TPA Checklist - LKW: 3-4.5 hrs Add. Warnings/Precautions Patient/family understanding: The patient/family members have been counseled and understood the risk, benefit , and alternatives of treatment. S.B.Earl - [email or web address] Situation: Demographics, MOA Background: Presenting Complaint, Relevant PMH, Meds, & Allergies Assessment: Vital Signs, Course and respsone to treatment, Exam Concerns, Patient/Family Expectation, Pertinant Lab Results, Outstanding Labs Recommendation: Barrier(s) to disposition, Recommendation based on pending studies, treatments, or consults S.B.A.RAnali Report Given to: Dr. De Leon. Discussed pending CXR. Olu Repor Time: 22:19
[2018-05-02 20:35] LABS: Basophils # 0.1 K/mcL (0.0-0.2); Basophils % 0.7 %; Eosinophils # 0.2 K/mcL (0.0-0.6); Eosinophils % 2.1 %; Hematocrit 47.2 % (37.5-50.1); Hemoglobin 16.2 g/dL (12.9-16.9); Immature Granulocytes % 0.2 % (0-4); Lymphocytes # 2.3 K/mcL (0.6-4.6); Lymphocytes % 25.7 %; Mean Corpuscular HGB Conc 34.3 g/dL (31.6-35.5); Mean Corpuscular Volume 87.4 fL (83.0-100.0); Monocytes # 1.1 K/mcL (0.0-1.3); Monocytes % 11.5 %; Neutrophils # 5.5 K/mcL (1.6-8.9); Platelet Count 269 K/mcL (140-400); Red Cell Distribution Width 13.5 % (11.5-14.5); Segmented Neutrophils % 59.8 %
[2018-05-02 20:43] LABS: INR 1.1; Prothrombin Time 12.7 Seconds (9.4-12.1)
[2018-05-02 20:45] LABS: Activated Partial Thrombo Time 33.7 Seconds (26.0-36.0)
[2018-05-02 20:57] LABS: BUN/Creatinine Ratio 8 (6-26); Blood Urea Nitrogen 7 mg/dL (6-20); Calcium 8.7 mg/dL (8.6-10.3); Carbon Dioxide 25 mEq/L (23-29); Chloride 108 mEq/L (98-107); Glucose 103 mg/dL (70-105); Osmolality,Calculated 282 (280-300); Potassium 3.6 mEq/L (3.5-5.1); Sodium 137 mEq/L (136-145); Troponin I < 0.03 ng/mL (< 0.04); eGFR For African Americans > 60 (> 60); eGFR For Non-African Americans > 60 (> 60)
--- NOTE | 2018-05-02 21:44 | Emergency Department Note ---
Disposition Clinical Impression: TIA (transient ischemic attack) Disposition: Admitted As Inpatient Referrals: Lei Morfin MD [Primary Care Provider] - Forms: ED Satisfaction Letter General Adult HPI - General Chief complaint: ED Neuro Symptoms/Deficit Stated complaint: visual loss on left side, neuro symptoms Time Seen by Provider: 05/02/18 20:14 Source: patient Mode of arrival: ambulatory Limitations: no limitations - History of Present Illness Pain Scale: 0 - Related Data Previous Rx's Medication Instructions Recorded Aspirin 81 mg PO DAILY 30 Days tab.chew 04/05/17 Atorvastatin [Lipitor] 80 mg PO HS 30 Days tablet 04/05/17 Lisinopril [Zestril] 5 mg PO DAILY 30 Days tablet 04/05/17 Cyclobenzaprine [Flexeril] 10 mg PO HS PRN #10 tablet 05/04/17 Naproxen [Naprosyn] 500 mg PO BID PRN #20 tablet 05/04/17 Allergies Allergy/AdvReac Type Severity Reaction Status Date / Time morphine Allergy Hives Verified 07/23/15 23:54 prednisone Allergy Hives Verified 07/23/15 23:54 Constitutional: Denies: fever Eyes: Reports: vision change Cardiovascular: Denies: chest pain Respiratory: Denies: cough, dyspnea, wheezes Gastrointestinal: Denies: abdominal pain, nausea, vomiting, diarrhea Musculoskeletal: Denies: back pain, neck pain Neurological: Reports: paresthesias. Denies: headache, weakness, numbness Past Medical History - Past Medical History Medical history: Reports: CVA, hypertension Surgical history: Reports: appendectomy, cholecystectomy, other Psychiatric history: Reports: no psych history - Social History Smoking Status: Current every day smoker Smokeless Tobacco Status: No Alcohol use: Reports: occasionally Drug use: Reports: none Physical Exam - General Limitations: no limitations General appearance: alert, in no apparent distress Course - Reevaluation(s) Reevaluation #1: Attestation note I examined this patient and my medical decision-making was reviewed with the emergency medicine resident. I agree with the documented findings, disposition and treatment plan as described except to the extent set forth below. Patient seen with emergency medicine resident Dr. Ulices Metz, Please see a copy of his note for details of the H&P, ED evaluation, management and disposition. I have independently evaluated the patient and confirmed appropriate portions of the history and physical exam. Briefly: Was healthy 47-year-old male my prior history of stroke presents with several hours of painless visual loss and some swelling of the left side of his face is no facial asymmetry GCS 15 NIH's 0. Patient has an EKG shows no acute ischemic changes labs the normal limits waiting head CT. Patient be admitted for TIA. Patient given aspirin after results of CT. Dispositional pending Time: 21:42 Vital Signs Temperature 97.7 F 05/02/18 20:08 Pulse Rate 78 05/02/18 20:08 Respiratory Rate 16 05/02/18 20:08 Blood Pressure 150/85 05/02/18 20:08 O2 Sat by Pulse Oximetry 98 05/02/18 20:08 Temperature 97.7 F 05/02/18 20:08 Pulse Rate 68 05/02/18 21:19 Respiratory Rate 18 05/02/18 21:19 Blood Pressure 148/84 05/02/18 21:19 O2 Sat by Pulse Oximetry 98 05/02/18 21:19 Oxygen Delivery Oxygen Delivery Room Air Medical Decision Making - Lab Data Result diagrams: 05/02/18 20:20 05/02/18 20:20 Lab Results 05/02/18 05/02/18 05/02/18 Range/Units 20:16 20:20 20:20 WBC 9.1 (4.3-11.1) K/mcL RBC 5.40 (4.19-5.50) M/mcL Hgb 16.2 (12.9-16.9) g/dL Hct 47.2 (37.5-50.1) % MCV 87.4 (83.0-100.0) fL MCH 30.0 (28.0-33.3) pg MCHC 34.3 (31.6-35.5) g/dL RDW 13.5 (11.5-14.5) % Plt Count 269 (140-400) K/mcL MPV 9.0 L (9.4-12.4) fL Immature Gran % 0.2 (0-4) % Seg Neutrophils % 59.8 % Lymphocytes % 25.7 % Monocytes % 11.5 % Eosinophils % 2.1 % Basophils % 0.7 % Neutrophils # 5.5 (1.6-8.9) K/mcL Lymphocytes # 2.3 (0.6-4.6) K/mcL Monocytes # 1.1 (0.0-1.3) K/mcL Eosinophils # 0.2 (0.0-0.6) K/mcL Basophils # 0.1 (0.0-0.2) K/mcL PT 12.7 H (9.4-12.1) Seconds INR 1.1 APTT 33.7 (26.0-36.0) Seconds Sodium (136-145) mEq/L Potassium (3.5-5.1) mEq/L Chloride (98-107) mEq/L Carbon Dioxide (23-29) mEq/L BUN (6-20) mg/dL Creatinine (0.70-1.30) mg/dL Est GFR ( Amer) (> 60) Est GFR (Non-Af Amer) (> 60) BUN/Creatinine Ratio (6-26) Glucose (70-105) mg/dL POC Glucose 105 H (70-99) mg/dL Calculated Osmolality (280-300) Calcium (8.6-10.3) mg/dL Troponin I (< 0.04) ng/mL 05/02/18 Range/Units 20:20 WBC (4.3-11.1) K/mcL RBC (4.19-5.50) M/mcL Hgb (12.9-16.9) g/dL Hct (37.5-50.1) % MCV (83.0-100.0) fL MCH (28.0-33.3) pg MCHC (31.6-35.5) g/dL RDW (11.5-14.5) % Plt Count (140-400) K/mcL MPV (9.4-12.4) fL Immature Gran % (0-4) % Seg Neutrophils % % Lymphocytes % % Monocytes % % Eosinophils % % Basophils % % Neutrophils # (1.6-8.9) K/mcL Lymphocytes # (0.6-4.6) K/mcL Monocytes # (0.0-1.3) K/mcL Eosinophils # (0.0-0.6) K/mcL Basophils # (0.0-0.2) K/mcL PT (9.4-12.1) Seconds INR APTT (26.0-36.0) Seconds Sodium 137 (136-145) mEq/L Potassium 3.6 (3.5-5.1) mEq/L Chloride 108 H (98-107) mEq/L Carbon Dioxide 25 (23-29) mEq/L BUN 7 (6-20) mg/dL Creatinine 0.90 (0.70-1.30) mg/dL Est GFR ( Amer) > 60 (> 60) Est GFR (Non-Af Amer) > 60 (> 60) BUN/Creatinine Ratio 8 (6-26) Glucose 103 (70-105) mg/dL POC Glucose (70-99) mg/dL Calculated Osmolality 282 (280-300) Calcium 8.7 (8.6-10.3) mg/dL Troponin I < 0.03 (< 0.04) ng/mL
[2018-05-02] MEDS ORDERED: Naloxone 0.4 MG/ML INJ IVP PRN (22:56)
[2018-05-02] MEDS ORDERED: Acetaminophen 325 MG TABLET PO PRN (23:02)
[2018-05-02] MEDS ORDERED: SUMAtriptan succinate 25 MG TABLET PO ONE (23:13)
--- NOTE | 2018-05-02 23:29 | Internal Med History&Physical ---
<[email or web address] fountain - Last Filed: 05/03/18 00:08> Date of Encounter: 05/02/18 Time of Encounter: 22:30 Internal Medicine - H&P: HPI Chief complaint: CVA sx Admitted From: Emergency Dept Plans for Post Hospital Care: Home History of present illness: Mr. Lopez is a 47 year old male w/PMH of TIAs and HTN presents from the ED with chief complaint of CVA symptoms that began approximately at 6 PM with right -sided facial weakness and peripheral vision loss in the right eye. Symptoms lasted approximately 30-45 minutes with only mild blurring of the right eye vision remaining. Patient states he has a history of TIAs previously 2 years ago requiring hospitalizations. Associated symptoms: dizziness, disequilibrium , and headache. Patient also reports right-sided weakness in right lower extremity from back injury suffered in 2004 and surgery performed at [facility] in 2004. Patient denies any other numbness, tingling, weakness anywhere else, chest pain, shortness of breath, nausea, vomiting, fever, diarrhea, abdominal pain, recent illness, unusual bleeding, constipation, pre-syncope, or syncope. Past Med Surg Social Fam HX - Past Medical History Source: patient, old records reviewed, obtained from family Medical history: hypertension, TIA (Two years ago) Additional medical history: back pain. stroke Psychiatric history: no psych history - Past Surgical History Surgical History: appendectomy, cholecystectomy, other Additional surgical history: spinal stimulator, back surgeries - Social History Smoking Status: Current every day smoker Packs per day: 1 PPD Smokeless Tobacco Status: No Alcohol use: occasionally Drug use: none Current living situation: Home, With Family Activity Level: Independent ambulation, Very active Recent Out of Country Travel Within the Last 8 Weeks: No Exposure or Possible Exposure to Illness During Travel: No - Family History Father History Unknown: Yes Adopted: Yes Mother History Unknown: Yes Adopted: Yes Internal Medicine - H&P: Meds Atorvastatin [Lipitor] 80 mg PO BID 05/02/18 [History] Clopidogrel [Plavix] 75 mg PO DAILY 05/02/18 [History] Ergocalciferol (VITAMIN D2) [Vitamin D] 400 unit PO DAILY 05/02/18 [History] Omeprazole [PriLOSEC] 20 mg PO BID 05/02/18 [History] 3 Allergy/AdvReac Type Severity Reaction Status Date / Time morphine Allergy Hives Verified 07/23/15 23:54 prednisone Allergy Hives Verified 07/23/15 23:54 All Systems PM: A 10-system review of systems was performed and is negative for pertinent findings except as documented above in the HPI. - Constitutional Constitutional: as per HPI, weakness (RLE d/t previous back injury), no chills, no fever(s), no night sweats - EENT Eyes: as per HPI, blurry vision, change in vision, loss of peripheral vision, photophobia, no discharge, no pain Ears: no ear discharge, no ear pain, no tinnitus Nose, mouth and throat: no dysphagia, no nasal discharge, no neck pain, no sore throat - Breasts Breasts: as per HPI - Cardiovascular Cardiovascular ROS IM: no chest pain, no diaphoresis, no dyspnea, no lightheadedness, no palpitations, no syncope - Respiratory Respiratory: no cough, no dyspnea, no wheezing, no excessive phlegm production - Gastrointestinal Gastrointestinal: no abdominal pain, no diarrhea, no hematemesis, no hematochezia, no melena, no nausea, no vomiting - Genitourinary Genitourinary ROS male: as per HPI - Musculoskeletal Musculoskeletal ROS IM: as per HPI, back pain, no numbness, no tingling - Integumentary Integumentary IM: no rash, no unusual bruising - Neurological Neurological ROS: as per HPI, disequilibrium, dizziness, headache(s), loss of vision, other visual disturbances, no confusion, no convulsions, no focal weakness, no numbness, no tingling, no tremor(s) - Psychiatric Psychiatric: as per HPI - Endocrine Endocrine IM: as per HPI - Hematologic/Lymphatic Hematologic/Lymphatic: no easy bruising - Allergic/Immunologic Allergic/Immunologic: as per HPI - Constitutional Vitals: Temp Pulse Resp BP Pulse Ox 97.7 F 64 16 134/77 98 05/02/18 20:08 05/02/18 22:16 05/02/18 22:16 05/02/18 22:16 05/02/18 22:16 General appearance: Present: cooperative, mild distress (Headache on right side) , A&O X 3, pleasant, obese, answers questions appropriately - Head Head exam: Present: atraumatic, normocephalic - Eye Eye exam: Present: PERRL, conjuntiva pink, sclera anicteric Pupils: Present: PERRL - ENT ENT exam: Present: normal exam - Neck Neck exam general surgery: Present: supple, trachea midline. Absent: lymphadenopathy - Respiratory Respiratory exam: Present: CTAB. Absent: accessory muscle use, rales, rhonchi, wheezes - Cardiovascular Cardiovascular exam: Present: RRR, +S1, +S2. Absent: diastolic murmur, gallop, rubs, systolic murmur - GI/Abdominal GI/Abdominal exam: Present: normal bowel sounds, soft, no peritoneal signs. Absent: distended, tenderness - Rectal Rectal exam: Present: deferred - Additional comments: exam deferred. - Extremities Exam Extremities exam: Present: warm, radial pulses palpable and symmetrical. Absent : calf tenderness, cyanotic, pedal edema - Back Exam Back exam: Present: normal inspection - Neurological Exam Neurological exam: Present: alert, CN II-XII intact, oriented X3, no focal deficits. Absent: pronater drift, facial droop, speech deficit - Psychiatric Psychiatric exam: Present: normal affect, normal mood - Skin Skin exam: Present: dry, intact Internal Med - H&P Results - Labs CBC & Chem 7: 05/02/18 20:20 05/02/18 20:20 Labs: Short CBC 05/02/18 Range/Units 20:20 WBC 9.1 (4.3-11.1) K/mcL Hgb 16.2 (12.9-16.9) g/dL Hct 47.2 (37.5-50.1) % Plt Count 269 (140-400) K/mcL Neutrophils # 5.5 (1.6-8.9) K/mcL BMP 05/02/18 20:20 Sodium 137 Potassium 3.6 Chloride 108 H Carbon Dioxide 25 BUN 7 Creatinine 0.90 Glucose 103 Calcium 8.7 Cardiac Enzymes 05/02/18 Range/Units 20:20 Troponin I < 0.03 (< 0.04) ng/mL - EKG Data EKG shows normal: sinus rhythm - EKG Data Prior EKG available for review: yes EKG comments: 05/02/18 23:39 EKG dated 04/04/17 shows sinus rhythm. EKG dated 05/02/18 shows sinus rhythm with possible right ventricular conduction delay. - Impressions ITS Impressions Head CT 05/02/18 20:21 IMPRESSION: No acute intracranial abnormality. D/ / Damien Clemens MD / Damien Clemens MD Interpreting Provider: Damien Clemens MD Chest X-Ray 05/02/18 21:27 IMPRESSION: No acute cardiopulmonary disease. D/ / Awais Díaz MD / Awais Díaz MD Interpreting Provider: Awais Díaz MD - Diagnostic Studies CT scan - head Additional comments: Impressions Head CT 05/02/18 20:21 IMPRESSION: No acute intracranial abnormality. D/ / Damien Clemens MD / Damien Clemens MD Interpreting Provider: Damien Clemens MD Chest x-ray Additional comments: Impressions Chest X-Ray 05/02/18 21:27 IMPRESSION: No acute cardiopulmonary disease. D/ / Awais Díaz MD / Awais Díaz MD Interpreting Provider: Awais Díaz MD - Assessment and plan (1) TIA (transient ischemic attack) Current Visit: Yes Status: Acute Assessment and plan: Acute TIA sx that began at 6:00 p.m. tonight w/headache, right facial paresthesias, and loss of peripheral vision in right eye. Sx resolved. Pt. reports blurred vision in right eye and right-sided headache. Pt. reports history of previous TIAs 2 years ago or hospitalization. Patient also reports previous headaches with similar symptoms. Denies history of migraines. Patient reports back injury in 2004 requiring spinal fluid drain. States symptoms are similar to when he had spinal fluid buildup. Residual right lower extremity weakness related to back injury. No other numbness, focal deficits, facial droop, or weakness noted on exam. No pronator drift. Bilateral carotid Dopplers ordered. Echocardiogram ordered. Continuous cardiac telemetry. EKG shows sinus rhythm with possible right ventricular conduction delay. NIHSS modified scale. Padding to bed rails. Timed neuro checks. No HTN medications to allow for permissive HTN. CT of the head unremarkable. MRI of the head/brain ordered. PT. REPORTS STIMULATOR IN BACK THAT IS MRI-COMPATIBLE. THIS NEEDS VERIFIED PRIOR TO MRI BEING DONE. Imitrex ordered once for migraine sx. NPO until dysphagia screen passed. Initial troponin negative. Will trend. Falls/ safety precautions. Up with assist only. Neurology consult ordered and needs followed up by a.m. provider. Pt. discussed w/Dr. Ayala who agrees w/plan of care. Pt. is high risk for further neurological event based on previous hx of TIAs, current sx, unknown familial hx d/t being adopted; and current risk factors of obesity, HTN, and current tobacco abuse. Observation. (2) Headache Current Visit: Yes Status: Acute Assessment and plan: Acute right-sided headache w/current symptoms. Pt. reports he has right-sided headaches w/similar sx in the past. Also reports photosensitivity. Imitrex 25 mg once ordered for migraine sx. Tylenol 1,000 mg given in ED w/o resolve. Tylenol 650 mg Q6HR PRN for headache ordered. Neuro checks per protocol. Falls/ safety precautions and up with assist. Qualifiers: Headache type: tension-type Headache chronicity pattern: acute headache Intractability: not intractable Qualified Code(s): G44.209 - Tension-type headache, unspecified, not intractable (3) Tobacco abuse Current Visit: Yes Status: Chronic Assessment and plan: Hx of chronic tobacco abuse. Reports smoking 1 PPD currently. Denies need for nicotine patch. (4) Hypertension Current Visit: Yes Status: Chronic Assessment and plan: Hx of chronic HTN. Pt. states he was taken off HTN medications. Will allow for permissive HTN d/t CVA sx until MRI resulted. Monitor pt. and VS. Qualifiers: Hypertension type: essential hypertension Qualified Code(s): I10 - Essential (primary) hypertension (5) Lower back injury Current Visit: Yes Status: Chronic Assessment and plan: Hx of chronic pain r/t lower back injury suffered in 2004. Pt. states he had surgery @ [facility] in 2004. Falls/safety precautions and up with assist only. Qualifiers: Encounter type: initial encounter Qualified Code(s): S39.92XA - Unspecified injury of lower back, initial encounter (6) Weakness of right lower extremity Current Visit: Yes Status: Chronic Assessment and plan: Hx of chronic weakness of RLE d/t back injury and subsequent surgery at [facility] in 2004. Falls/safety precautions and up with assist only. (7) DVT prophylaxis Current Visit: Yes Status: Acute Assessment and plan: Bilateral SCDs on LEs for DVT prophylaxis until MRI resulted. (8) Dizziness Current Visit: Yes Status: Acute Assessment and plan: Acute dizziness w/CVA-type sx. Pt. reports disequilibrium w/ambulation. Bilateral carotid Dopplers to assess for blockages. Echocardiogram. CT. of head unremarkable. MRI of head/brain ordered to r/o ischemia/infarct. PT. REPORTS STIMULATOR IN BACK THAT IS MRI-COMPATIBLE. THIS NEEDS VERIFIED PRIOR TO MRI BEING DONE. Falls/safety precautions. Up with assist only. - Time Spent With Patient Total time spent is greater than 50% in coordination of care (as documented) at patient's floor/unit and/or counseling patient: Greater than 35 minutes <Crystal Ayala - Last Filed: 05/03/18 04:48> Date of Encounter: 05/03/18 Internal Medicine - H&P: HPI History of present illness: Mr. Lopez is a 47 year old male All Systems PM: A 10-system review of systems was performed and is negative for pertinent findings except as documented above in the HPI. - Constitutional Vitals: Temp Pulse Resp BP Pulse Ox 97.6 F 52 18 155/93 97 05/03/18 01:34 05/03/18 01:34 05/03/18 01:34 05/03/18 01:34 05/03/18 01:34 Internal Med - H&P Results - Labs CBC & Chem 7: 05/03/18 03:13 05/03/18 03:13 Labs: Short CBC 05/03/18 Range/Units 03:13 WBC 7.7 (4.3-11.1) K/mcL Hgb 14.6 D (12.9-16.9) g/dL Hct 43.9 (37.5-50.1) % Plt Count 234 (140-400) K/mcL Neutrophils # 3.7 (1.6-8.9) K/mcL BMP 05/03/18 03:13 Sodium 137 Potassium 3.5 Chloride 106 Carbon Dioxide 24 BUN 9 Creatinine 0.87 Glucose 124 H Calcium 8.8 Cardiac Enzymes 05/03/18 Range/Units 03:13 Troponin I < 0.03 (< 0.04) ng/mL Liver Function 05/03/18 Range/Units 03:13 Total Bilirubin 0.4 (0.3-1.0) mg/dL AST 11 L (13-39) Units/L ALT 15 (7-52) Units/L Alkaline Phosphatase 105 H (34-104) Units/L Albumin 3.8 (3.5-5.7) g/dL - Attending Attestation I have seen and examined this patient independently. I have discussed with FINANCIAL SERVICES REPRESENTATIVE Mr Poon regarding the management plan. Agree with the documentation. - Assessment and plan (1) Hypertension Current Visit: Yes Status: Chronic Qualifiers: Hypertension type: essential hypertension Qualified Code(s): I10 - Essential (primary) hypertension (2) Tobacco abuse Current Visit: Yes Status: Chronic (3) Lower back injury Current Visit: Yes Status: Chronic Qualifiers: Encounter type: initial encounter Qualified Code(s): S39.92XA - Unspecified injury of lower back, initial encounter (4) TIA (transient ischemic attack) Current Visit: Yes Status: Acute (5) DVT prophylaxis Current Visit: Yes Status: Acute (6) Weakness of right lower extremity Current Visit: Yes Status: Chronic (7) Headache Current Visit: Yes Status: Acute Qualifiers: Headache type: tension-type Headache chronicity pattern: acute headache Intractability: not intractable Qualified Code(s): G44.209 - Tension-type headache, unspecified, not intractable (8) Dizziness Current Visit: Yes Status: Acute - Time Spent With Patient Total time spent is greater than 50% in coordination of care (as documented) at patient's floor/unit and/or counseling patient:
[2018-05-02] MEDS ORDERED: *HR* FentaNYL (PF) 100 MCG/2 ML VIAL IVP ONE (23:56)
[2018-05-03] MEDS ORDERED: *HR* FentaNYL (PF) 100 MCG/2 ML VIAL IVP ONE (00:17)
[2018-05-03 03:33] LABS: Basophils # 0.1 K/mcL (0.0-0.2); Basophils % 0.6 %; Eosinophils # 0.2 K/mcL (0.0-0.6); Eosinophils % 2.7 %; Hematocrit 43.9 % (37.5-50.1); Immature Granulocytes % 0.3 % (0-4); Lymphocytes # 2.8 K/mcL (0.6-4.6); Lymphocytes % 36.4 %; Mean Corpuscular HGB Conc 33.3 g/dL (31.6-35.5); Mean Corpuscular Volume 87.3 fL (83.0-100.0); Mean Platelet Volume 9.2 fL (9.4-12.4); Monocytes # 0.9 K/mcL (0.0-1.3); Monocytes % 11.6 %; Neutrophils # 3.7 K/mcL (1.6-8.9); Platelet Count 234 K/mcL (140-400); Red Blood Count 5.03 M/mcL (4.19-5.50); Red Cell Distribution Width 13.7 % (11.5-14.5); Segmented Neutrophils % 48.4 %
[2018-05-03 03:34] LABS: Hemoglobin 14.6 g/dL (12.9-16.9)
[2018-05-03 03:52] LABS: Alanine Aminotransferase 15 Units/L (7-52); Albumin 3.8 g/dL (3.5-5.7); Albumin/Globulin Ratio 1.7 (1.1-2.2); Alkaline Phosphatase 105 Units/L (34-104); Aspartate Amino Transferase 11 Units/L (13-39); BUN/Creatinine Ratio 10 (6-26); Bilirubin,Total 0.4 mg/dL (0.3-1.0); Blood Urea Nitrogen 9 mg/dL (6-20); Calcium 8.8 mg/dL (8.6-10.3); Carbon Dioxide 24 mEq/L (23-29); Chloride 106 mEq/L (98-107); Chol/HDL Ratio 5.5 (0-4.9); Cholesterol 155 mg/dL (< 200); Globulin 2.3 g/dL (2.4-3.5); Glucose 124 mg/dL (70-105); HDL Cholesterol 28 mg/dL (40-59); LDL Cholesterol,Calculated 105 mg/dL (0-99); Magnesium 2.1 mg/dL (1.6-2.6); Osmolality,Calculated 284 (280-300); Potassium 3.5 mEq/L (3.5-5.1); Sodium 137 mEq/L (136-145); Total Protein 6.1 g/dL (6.4-8.9); Triglycerides 108 mg/dL (< 150); eGFR For African Americans > 60 (> 60); eGFR For Non-African Americans > 60 (> 60)
[2018-05-03 07:52] LABS: Estimated Average Glucose 117 mg/dl; Hemoglobin A1C 5.7 %
--- NOTE | 2018-05-03 08:24 | Event Note ---
Date of Encounter: 05/03/18 Time of Encounter: 08:25 Pt's nerve stimulator is not MRI compatible per personnel and payroll technician.
[2018-05-03] MEDS ORDERED: Cholecalciferol (D-3) 1,000 UNIT TABLET PO SCH (09:00)
[2018-05-03] MEDS ORDERED: Pantoprazole 40 MG VIAL IVP SCH (09:00)
--- NOTE | 2018-05-03 09:58 | Neurology - Consult Note ---
<Ulices Acuña R - Last Filed: 05/03/18 11:15> Date of Encounter: 05/03/18 Time of Encounter: 09:51 Assessment and Plan (1) Migraine Status: Acute Recommend p.o. 25mg amitriptyline daily at hour of sleep for migraine prevention. Imitrex should prescribed and available for break through migraine. Follow up with neurology clinic, patient states he has appointment with the neurology clinic on May 06 2018. Qualifiers: Migraine type: with aura Intractability: not intractable Qualified Code(s ): G43.101 - Migraine with aura, not intractable, with status migrainosus History of Present Illness HPI: Mr. Lopez is a 47 year old male, presented to ED yesterday evening with chief complaint of right side headache, right eye blurriness, dizziness, and right facial droop. Patient states symptoms began with right eye visual disturbance and light sensitivity at 6pm yesterday, with symptoms completely resolving in the ED at approximately 1 am. States symptoms resolved within 20 minutes of receiving Imitrex. Patient has had similar sets of symptoms in the past. He develops right side headache every 2 months, often associated with right eye halos and light sensitivity. He currently believes that all of his symptoms have resolved. Back surgery in 2004 has left him with right lower extremity weakness and foot drop, which is chronic and at baseline. Past Med Surg Social Fam HX - Past Medical History Medical history: hypertension, TIA Additional medical history: back pain. stroke Psychiatric history: no psych history - Past Surgical History Surgical History: appendectomy, cholecystectomy, other Additional surgical history: spinal stimulator, back surgeries - Social History Smoking Status: Current every day smoker Packs per day: 1 PPD Smokeless Tobacco Status: No Alcohol use: occasionally Drug use: none - Family History Father History Unknown: Yes Adopted: Yes Mother History Unknown: Yes Adopted: Yes Medications and Allergies Atorvastatin [Lipitor] 80 mg PO HS 05/02/18 [History] Clopidogrel [Plavix] 75 mg PO DAILY 05/02/18 [History] Ergocalciferol (VITAMIN D2) [Vitamin D] 400 unit PO DAILY 05/02/18 [History] Omeprazole [PriLOSEC] 20 mg PO BID 05/02/18 [History] Amitriptyline [Elavil] 25 mg PO QDPC #30 tablet 05/03/18 [Rx] Omeprazole [PriLOSEC] 20 mg PO BIDAC capsule. 05/03/18 [Rx] SUMAtriptan succinate [Imitrex] 25 mg PO Q2H #30 tablet 05/03/18 [Rx] 3 Allergy/AdvReac Type Severity Reaction Status Date / Time morphine Allergy Hives Verified 07/23/15 23:54 prednisone Allergy Hives Verified 07/23/15 23:54 All Systems: The remainder of the systems were reviewed and are negative Review of Systems: Right lower extremity weakness, chronic, attributed to 2005 disc protrusion and surgery. Physical Examination - Vital Signs Vital Signs: Initial Vital Signs Temp Pulse Resp BP Pulse Ox 97.7 F 78 16 150/85 98 05/02/18 20:08 05/02/18 20:08 05/02/18 20:08 05/02/18 20:08 05/02/18 20:08 - Exam Exam: Mental Status: awake, alert and oriented to person, place, and time. Speech is free and fluent, recent and remote memory intact. Cranial Nerves: CN II-XII intact bilateral. PO pupils, no visual field deficits. Upper extremity motor exam: demonstrates symmetric 5/5 strength in bilateral deltoid, bicep, tricep, finger extensors and abductors. Lower extremity motor exam: demonstrates 5/5 strength in the left hip flexors, quadriceps, hamstrings, plantar flexors and extensors. Right side 4/5 strength in hip flexors, quadriceps, hamstrings, plantar flexors and extensors. Sensory: sensation to light touch intact and symmetric Reflexes: 2+ biceps, triceps, brachioradialis, patellar, and achilles. Babinski negative. Cerebellar: finger-nose, rapid alternating movements normal. Mild right foot drop present, otherwise normal gait Results - Laboratory Findings CBC and BMP: 05/03/18 03:13 05/03/18 03:13 Abnormal lab findings: Abnormal lab results MPV 9.2 fL (9.4-12.4) L 05/03/18 03:13 PT 12.7 Seconds (9.4-12.1) H 05/02/18 20:20 Glucose 124 mg/dL (70-105) H 05/03/18 03:13 POC Glucose 105 mg/dL (70-99) H 05/02/18 20:16 Hemoglobin A1c 5.7 % (-5.6) H 05/03/18 03:13 AST 11 Units/L (13-39) L 05/03/18 03:13 Alkaline Phosphatase 105 Units/L (34-104) H 05/03/18 03:13 Serum Total Protein 6.1 g/dL (6.4-8.9) L 05/03/18 03:13 Globulin 2.3 g/dL (2.4-3.5) L 05/03/18 03:13 LDL Cholesterol, Calc 105 mg/dL (0-99) H 05/03/18 03:13 HDL Cholesterol 28 mg/dL (40-59) L 05/03/18 03:13 Cholesterol/HDL Ratio 5.5 (0-4.9) H 05/03/18 03:13 Consult Discharge Plan - Plan Instructions: Migraine Headache (GEN), Chronic Hypertension (DC) Referrals: Lei Morfin MD [Primary Care Provider] - 05/21/18 9:30 am (Please follow up as schedule...) Prescriptions: Amitriptyline [Elavil] 25 mg PO QDPC #30 tablet SUMAtriptan succinate [Imitrex] 25 mg PO Q2H #30 tablet <Andrew Bradley I - Last Filed: 05/03/18 11:29> Date of Encounter: 05/03/18 Assessment and Plan (1) Migraine Status: Acute Pt was seen and examined, my medical decision was reviewed with the Resident Physician, I agree with the documented findings, disposition and treatment plas as described except to the extent set forth below This 47 years old male who was admitted with these visual changes as well as real bad the headache with a history of flow not very frequent migraine attack as well as questionable history of a small vessel ischemia in the past now completely asymptomatic, and without any focal deficit on his examination CT scan of the head is been negative no evidence lateralizing sign to be suggestive of his stroke. Unable to get an MRI because of his stimulator. He did have a workup last year including CT angiogram of the head and neck and both were negative for any stenosis. Currently he is on Plavix suggest to continue. Patient likely having chronic migraines though he did not have any severe enough that requires any immediate attention and is been taking over-the- counter medication on a quite regular basis several times in a week but most of time these headaches are not as bad at the same time the frequency is also not as frequent until recent one which causes these other associated symptoms. Though he does not meet the typical criteria for prevention therapy but considering this recent event which seems to be severe enough brought him to the emergency room I would recommend that starting low-dose of amitriptyline 25 mg at bedtime to prevent any further and even the milder headaches that he is been experiencing. same time he may take Imitrex on as needed basis for acute migraine attack not more than 2 in 24 hours. He will be following up with his primary care we will be happy to see him back in the clinic 2-4 weeks as a follow-up As is stable okay to discharge from neurology standpoint Andrew Bradley MD Qualifiers: Migraine type: with aura Intractability: not intractable History of Present Illness HPI: Mr. Lopez is a 47 year old male All Systems: The remainder of the systems were reviewed and are negative Physical Examination - Vital Signs Vital Signs: Initial Vital Signs Temp Pulse Resp BP Pulse Ox 97.7 F 78 16 150/85 98 05/02/18 20:08 05/02/18 20:08 05/02/18 20:08 05/02/18 20:08 05/02/18 20:08 Results - Laboratory Findings CBC and BMP: 05/03/18 03:13 05/03/18 03:13 Abnormal lab findings: Abnormal lab results MPV 9.2 fL (9.4-12.4) L 05/03/18 03:13 PT 12.7 Seconds (9.4-12.1) H 05/02/18 20:20 Glucose 124 mg/dL (70-105) H 05/03/18 03:13 POC Glucose 105 mg/dL (70-99) H 05/02/18 20:16 Hemoglobin A1c 5.7 % (-5.6) H 05/03/18 03:13 AST 11 Units/L (13-39) L 05/03/18 03:13 Alkaline Phosphatase 105 Units/L (34-104) H 05/03/18 03:13 Serum Total Protein 6.1 g/dL (6.4-8.9) L 05/03/18 03:13 Globulin 2.3 g/dL (2.4-3.5) L 05/03/18 03:13 LDL Cholesterol, Calc 105 mg/dL (0-99) H 05/03/18 03:13 HDL Cholesterol 28 mg/dL (40-59) L 05/03/18 03:13 Cholesterol/HDL Ratio 5.5 (0-4.9) H 05/03/18 03:13
[2018-05-03 10:39] VITALS: BP 141/80
--- NOTE | 2018-05-03 10:42 | Discharge Summary ---
- NOTES TO OUTPATIENT PROVIDER Notes to Outpatient Provider: PCP, Dr. Morifn in 5 to 7 days Date of Encounter: 05/03/18 Time of Encounter: 10:40 - Discharge Diagnosis (1) Migraine Priority: Primary Status: Acute Assessment and Plan: Pt states symptoms resolved after he was given medication for migraine. Pt seen by neurology and recommends p.o. 25mg amitriptyline daily at hour of sleep for migraine prevention. Imitrex available for break through migraine. Follow up with neurology clinic as scheduled. Patient states he has appointment with the neurology clinic on May 06 2018. Qualifiers: Migraine type: with aura Intractability: not intractable Qualified Code(s ): G43.101 - Migraine with aura, not intractable, with status migrainosus (2) Hypertension Priority: Secondary Status: Chronic Assessment and Plan: Pt recommend to follow up out pt with PCP for BP monitoring. Pt advised on salt restriction diet. BP at discharge 117/77, and stable. Qualifiers: Hypertension type: essential hypertension Qualified Code(s): I10 - Essential (primary) hypertension (3) Tobacco abuse Priority: Secondary Status: Chronic Assessment and Plan: Cessation sronlg advised. When pt advised on quitting smoking, he states " that ain't gonna happen." States he tried Chantix and it gave him vivid dreams. Advised to try chantix at 1/2 his current dose. Also advised to consider other methods of cessation i.e gum, patch etc (4) TIA (transient ischemic attack) Priority: Secondary Status: Acute Assessment and Plan: Seen by neurlogy and symptoms more consistent with Migraine. Symptoms completely resolved. Notified by MRI this morning that nerve stimulator is not compatible with MRI and therefore pt unable to have MRI done. Since symtpms resolved MRI not needed at this time. Pt states he has had similar symptoms in the past and at that time was unable to get MRI. Pt is to continue on Plavix and Lipitor as before. Qualifiers: Transient cerebral ischemia type: amaurosis fugax Qualified Code(s): G45.3 - Amaurosis fugax Hospital course: Mr. Lopez is a 47 year old male Discharge discussed with: patient - Time Spent with Patient Total time spent providing and/or coordinating discharge services: Greater than 30 minutes - Discharge Medications Home Medications: Atorvastatin [Lipitor] 80 mg PO HS 05/02/18 [History] Clopidogrel [Plavix] 75 mg PO DAILY 05/02/18 [History] Ergocalciferol (VITAMIN D2) [Vitamin D] 400 unit PO DAILY 05/02/18 [History] Omeprazole [PriLOSEC] 20 mg PO BID 05/02/18 [History] Amitriptyline [Elavil] 25 mg PO QDPC #30 tablet 05/03/18 [Rx] Omeprazole [PriLOSEC] 20 mg PO BIDAC capsule. 05/03/18 [Rx] SUMAtriptan succinate [Imitrex] 25 mg PO Q2H #30 tablet 05/03/18 [Rx] Allergies/Adverse Reactions: 3 Allergy/AdvReac Type Severity Reaction Status Date / Time morphine Allergy Hives Verified 07/23/15 23:54 prednisone Allergy Hives Verified 07/23/15 23:54 Date of admission: 05/03/18 01:28 Primary care physician: Lei Morfin MD - Constitutional Vitals: Temp Pulse Resp BP Pulse Ox 98.0 F 56 16 141/80 99 05/03/18 10:37 05/03/18 10:37 05/03/18 10:37 05/03/18 10:37 05/03/18 10:37 General appearance: Present: cooperative, mild distress (Headache on right side) , A&O X 3, pleasant, obese, answers questions appropriately - Head Head exam: Present: atraumatic, normocephalic - Eye Eye exam: Present: PERRL, conjuntiva pink, sclera anicteric Pupils: Present: PERRL - Neck Neck exam general surgery: Present: supple, trachea midline. Absent: lymphadenopathy - Respiratory Respiratory exam: Present: CTAB. Absent: accessory muscle use, rales, rhonchi, wheezes - Cardiovascular Cardiovascular exam: Present: RRR, +S1, +S2. Absent: diastolic murmur, gallop, rubs, systolic murmur - GI/Abdominal GI/Abdominal exam: Present: normal bowel sounds, soft, no peritoneal signs. Absent: distended, tenderness - Extremities Exam Extremities exam: Present: warm, radial pulses palpable and symmetrical. Absent : calf tenderness, cyanotic, pedal edema - Neurological Exam Neurological exam: Present: CN II-XII intact, oriented X3, no focal deficits. Absent: pronater drift, facial droop, speech deficit - Skin Skin exam: Present: dry, intact - Patient Status Disposition: Home, Self-Care Condition: Good Overall status at discharge: patient is back to baseline - Discharge Instructions Follow Up With: Lei Morfin MD [Primary Care Provider] - - Diet and Activity Activity: increase activity as tolerated Diet: advance to your usual diet
--- NOTE | 2018-05-03 19:07 | Electrocardiograph Report ---
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
== END 2018-05-03 11:18 | disposition home or self-care (01) ==
LOC: EMEROO 20:06 → 2ANU 20:06
PROVIDERS: ADMIT Internal Medicine; ATTEND Internal Medicine